=== PATIENT | female | born 1975 | race Caucasian/White ===

== ENCOUNTER 2024-12-27 12:29 | Emergency (ER) | payer MEDICAID ==
[~2024-12-27] VITALS: Ht 162.6 cm; Wt 96.9 kg
[2024-12-27 12:48] VITALS: BP 162/89; PULSE 86; TEMP 97.8; O2SAT 97
[2024-12-27 14:17] VITALS: RESP 16
[2024-12-27] MEDS: ketorolac trometh 30MG/ML vial 30 MG/ML VIAL IM ONE (14:17)
[2024-12-27] MEDS ORDERED: PRED20TA PO (15:25)
== END 2024-12-27 16:16 | disposition home or self-care (01) ==
LOC: ER 12:30
DX: M25.531 Pain in right wrist (principal); Z88.8 Allergy status to other drugs, medicaments and biological substances
CPT/HCPCS: 29260; 73110; 96372; 99283; J1885

== ENCOUNTER 2025-01-20 12:21 | Outpatient (CLI) | payer MEDICAID | END 2025-01-20 23:59 | disposition home or self-care (01) | LOC: MRI02 12:21 | PROVIDERS: ATTEND Physician Assistant | DX: S63.591A Other specified sprain of right wrist, initial encounter (principal); M25.531 Pain in right wrist; X58.XXXA Exposure to other specified factors, initial encounter; Y93.89 Activity, other specified; Y92.89 Other specified places as the place of occurrence of the external cause; Y99.8 Other external cause status | CPT/HCPCS: 73221 ==

== ENCOUNTER 2025-01-31 13:53 | Outpatient (CLI) | payer MEDICAID | END 2025-01-31 23:59 | disposition home or self-care (01) | LOC: RAD 13:53 | PROVIDERS: ATTEND General Practice | DX: M25.511 Pain in right shoulder (principal); M25.512 Pain in left shoulder | CPT/HCPCS: 73030 ==